=== PATIENT | female | born 1975 | race Hispanic/Latino ===

== ENCOUNTER 2020-02-11 17:55 | Emergency (ER) | payer OTHER ==
[2020-02-11] MEDS ORDERED: MORPHINE 4 MG/ML SYR ONE (19:41)
[2020-02-11] MEDS ORDERED: ONDANSETRON 4 MG/2 ML VIAL ONE (19:41)
[2020-02-11] MEDS ORDERED: NA CHLORIDE 0.9% 1,000 ML ONE (19:41)
[2020-02-11 19:50] LABS: Urine Blood 2+ (NEG); Urine Glucose 1+ (NEG); Urine Protein NEGATIVE (NEG); Urine pH 5.5 (5.0-7.0)
[2020-02-11 19:54] LABS: Protime INR 0.97
[2020-02-11 19:55] LABS: Absolute Lymphocytes (CBC) 2.7 K/uL (0.7-4.9); Basophils % 0.6 % (0-1.3); Hematocrit 28.4 % (36.0-45.0); Lymphocytes % 21.2 % (15.3-44.8); MPV 8.4 fL (7.6-11.3); RBC Red Blood Cell Count 4.26 M/uL (3.86-4.86)
[2020-02-11 20:01] LABS: Barbiturates NEGATIVE (NEGATIVE); Benzodiazepines NEGATIVE (NEGATIVE); Cocaine NEGATIVE (NEGATIVE); METHAMPHETAM NEGATIVE (NEGATIVE); Methadone NEGATIVE (NEGATIVE); Opiates NEGATIVE (NEGATIVE); Phencyclidine NEGATIVE (NEGATIVE); THC Cannibis NEGATIVE (NEGATIVE)
[2020-02-11 20:08] LABS: ALT/SGPT 26 U/L (12-78); AST/SGOT 14 U/L (15-37); Albumin 3.4 g/dL (3.4-5.0); Alkaline Phosphatase 92 U/L (45-117); BUN Blood Urea Nitrogen 14 mg/dL (7-18); Bicarbonate 23 mmol/L (21-32); Bilirubin Direct < 0.1 mg/dL (0-0.2); Bilirubin Total 0.2 mg/dL (0.2-1.0); Glucose Level 150 mg/dL (74-106); Magnesium 1.9 mg/dL (1.8-2.4); NT PRO-BNP 15 pg/mL (<125); Potassium 4.3 mmol/L (3.5-5.1); Protein, Total 8.9 g/dL (6.4-8.2); Sodium Level 136 mmol/L (136-145); Troponin (Emerg Dept Use Only) < 0.02 ng/mL (0.0-0.045)
[2020-02-11 20:13] LABS: Anisocytosis 3+; Blood Morphology Comment NOTED (NOT SEEN); Hypochromasia 1+; Ovalocytes 1+; Platelet Estimate ADEQ; White Blood Cell Scan OK
--- NOTE | 2020-02-11 20:14 | RAD REPORT ---
EXAM DESCRIPTION: RAD - Chest Single View - 02/11/2020 7:48 pm CLINICAL HISTORY: neck and left arm pain COMPARISON: Portable January 2017 TECHNIQUE: AP portable chest image was obtained 02/11/2020 7:48 pm . FINDINGS: Lungs are clear. Heart and vasculature are normal. No measurable pleural effusion and no p neumothorax. No acute bony abnormality seen. No acute aortic findings suspected. IMPRESSION: No acute cardiopulmonary process. No significant interval change.
--- NOTE | 2020-02-11 20:15 | RAD REPORT ---
EXAM DESCRIPTION: US - Extremity Venous Uni Ltd - 02/11/2020 8:05 pm CLINICAL HISTORY: Pain;Swelling COMPARISON: None. TECHNIQUE: Real-time sonographic evaluation of the left lower extremity deep venous system was perfo rmed. FINDINGS: Normal compressibility, flow augmentation, phasic flow and spontaneous flow are identified in the left lower extremity common femoral, superficial femoral, and popliteal veins. No intralumina l filling defects seen. IMPRESSION: No DVT in the left lower extremity.
[2020-02-11] MEDS ORDERED: MEPERIDINE HCL 50 MG/ML ONE (20:49)
[2020-02-11 20:59] LABS: Urine Bacteria 20-50 /HPF (<20); Urine Culture Reflex Order REFLEXED; Urine Mucus 2+ /HPF (NONE SEEN)
--- NOTE | 2020-02-11 22:59 | EDPHYS ---
Physician Documentation [facility] Name: Bindu Sharif Age: 44 yrs Sex: Female : 1975 Arrival Date: 02/11/2020 Time: 17:58 Bed 15 Private MD: Cheng [facility] ED Physician Suhas Duke HPI: 02/10 19:05 This 44 yrs old Female presents to ER via Wheelchair with complaints of Neck pkl Pain, <24hrs Old, Shoulder Pain, Arm Pain. 19:31 The patient or guardian complains of pain, that is acute. The symptoms are located at pkl the left side neck. Onset: The symptoms/episode began/occurred 2 week(s) ago. Associated signs and symptoms: Pertinent positives: left arm pain and numbness. Patient also complained of abdominal pain and pain and swelling left lower extremity. Historical: - Allergies: 18:20 iron transfusion; aa5 - PMHx: 18:20 Diabetes - IDDM; Anemia; Uterine fibroids; "Residue of blood clot in my stomach"; aa5 - PSHx: 18:20 Appendectomy; ; "Blood clot removed from stomach"; aa5 - Immunization history:: Adult Immunizations unknown. - Social history:: Smoking status: Patient reports the use of cigarette tobacco products, smokes one-half pack cigarettes per day. ROS: 19:31 Eyes: Negative for injury, pain, redness, and discharge, ENT: Negative for injury, pkl pain, and discharge. 19:31 Neck: Positive for pain with movement, of the left side neck. 19:31 Cardiovascular: Negative for chest pain. 19:31 Respiratory: Negative for cough, shortness of breath. 19:31 Abdomen/GI: Positive for abdominal pain, of the left upper quadrant and left lower quadrant, Negative for nausea, vomiting, and diarrhea. 19:31 Back: Negative for acute changes. 19:31 : Negative for urinary symptoms. 19:31 MS/extremity: Positive for pain, swelling, of the left lower extremity. 19:31 Skin: Negative for rash. 19:31 Neuro: Positive for numbness, of the left arm. Exam: 19:31 Head/Face: Normocephalic, atraumatic. Eyes: Pupils equal round and reactive to light, pkl extra-ocular motions intact. Lids and lashes normal. Conjunctiva and sclera are non-icteric and not injected. Cornea within normal limits. Periorbital areas with no swelling, redness, or edema. ENT: Nares patent. No nasal discharge, no septal abnormalities noted. Tympanic membranes are normal and external auditory canals are clear. Oropharynx with no redness, swelling, or masses, exudates, or evidence of obstruction, uvula midline. Mucous membranes moist. 19:31 Neck: ROM/movement: pain, that is moderate, with any movement. 19:31 Chest/axilla: Exam negative for acute changes. 19:31 Cardiovascular: Rate: tachycardic, actual rate is 104 bpm, Rhythm: regular. 19:31 Respiratory: the patient does not display signs of respiratory distress, Respirations: normal, Breath sounds: are clear throughout. 19:31 Abdomen/GI: Bowel sounds: normal, Palpation: soft, nontender, in all quadrants. 19:31 Back: Exam negative for acute changes. 19:31 : Exam negative for acute changes. 19:31 Musculoskeletal/extremity: Extremities: grossly normal except: noted in the left lower extremity: pain, swelling, around stump BKA. 19:31 Skin: Exam negative for rash. 19:31 Neuro: Orientation: is normal, Mentation: is normal, Memory: is normal, Cranial nerves: grossly normal, Motor: is normal, Sensation: numbness, that is mild, of the left arm. Vital Signs: 18:17 BP 139 / 88; Pulse 104; Resp 18 S; Temp 98.7(O); Pulse Ox 100% on R/A; Weight 74.39 kg aa5 (R); Height 5 ft. 4 in. (162.56 cm) (R); Pain 8/10; 20:58 BP 122 / 76; Pulse 103; Resp 18; Pulse Ox 100% on R/A; ea 22:32 BP 155 / 82; Pulse 89; Resp 19; Pulse Ox 100% ; ea 23:00 BP 128 / 68; Pulse 60; Resp 18; Temp 98.6; Pulse Ox 99% ; ea 18:17 Body Mass Index 28.15 (74.39 kg, 162.56 cm) aa5 MDM: 19:05 Patient medically screened. pkl 22:54 Data reviewed: vital signs, nurses notes, radiologic studies, CT scan, plain films, pkl ultrasound. ED course: Discussed lab. and imaging studies with patient. Advised to follow up with PCP in 2 to 3 days. Patient understood instructions. 02/10 19:24 Order name: Basic Metabolic Panel; Complete Time: 20:21 pkl 02/10 19:24 Order name: CBC with Diff; Complete Time: 20:21 pkl 02/10 19:24 Order name: LFT's; Complete Time: 20:21 pkl 02/10 19:24 Order name: Magnesium; Complete Time: 20:21 pkl 02/10 19:24 Order name: NT PRO-BNP; Complete Time: 20:21 pkl 02/10 19:24 Order name: PT-INR; Complete Time: 20: pkl 02/10 19:24 Order name: Troponin (emerg Dept Use Only); Complete Time: 20:21 pk 02/10 19:24 Order name: D-Dimer; Complete Time: 20:21 pkl 02/10 19:24 Order name: UDS; Complete Time: 20:21 pk 02/10 19:25 Order name: Lipase pk 02/10 19:26 Order name: Lipase; Complete Time: 20:21 EDMS 02/10 19:48 Order name: Urine --Ancillary (enter results); Complete Time: 20:21 tt3 02/10 19:48 Order name: Urine Dipstick--Ancillary (enter results); Complete Time: 20:21 tt3 02/10 19:57 Order name: CBC Smear Scan; Complete Time: 20:21 EDMS 02/10 19:24 Order name: XRAY Chest (1 view); Complete Time: 20:21 pk 02/10 19:24 Order name: EKG; Complete Time: 19:24 pk 02/10 19:24 Order name: Cardiac monitoring; Complete Time: 20:02 pk 02/10 19:24 Order name: EKG - Nurse/Tech; Complete Time: 20:03 pk 02/10 19:24 Order name: IV Saline Lock; Complete Time: 20:03 pk 02/10 19:24 Order name: Labs collected and sent; Complete Time: 20:03 pkl 02/10 19:27 Order name: US Extremity Venous Unilateral Ltd; Complete Time: 20:21 pk 02/10 20:25 Order name: Urine Microscopic Only; Complete Time: 22:26 ea 02/10 20:28 Order name: CT C Spine pkl 02/10 20:28 Order name: CT Abd/Pelvis - PO and IV Contrast pkl 02/10 21:00 Order name: Urine Culture EDKY 02/10 19:24 Order name: O2 Per Protocol; Complete Time: 20:03 pkl 02/10 19:24 Order name: O2 Sat Monitoring; Complete Time: 20:03 pkl Administered Medications: 19:30 Drug: NS 0.9% 1000 ml Route: IV; Rate: 125 ml/hr; Site: right antecubital; ea 23:13 Follow up: Response: No adverse reaction; IV Status: Completed infusion; IV Intake: ea 200ml 19:30 Drug: morphine 4 mg {Note: rass 0.} Route: IVP; Site: right antecubital; ea 20:35 Follow up: Response: No adverse reaction; Pain is unchanged, physician notified ea 19:30 Drug: Zofran (Ondansetron) 4 mg Route: IVP; Site: right antecubital; ea 20:54 Follow up: Response: No adverse reaction ea 20:42 Drug: Demerol 50 mg {Note: RASS 1.} Route: IVP; Site: right antecubital; ea 23:09 Follow up: Response: Pain is decreased; RASS: Alert and Calm (0) ea 23:04 Drug: Ciprofloxacin 500 mg Route: PO; ea 23:09 Follow up: Response: Medication administered at discharge. ea Disposition: 02/11/20 22:59 Discharged to Home. Impression: Acute neck pain. Abdominal pain. Urinary tract infection. - Condition is Stable. - Prescriptions for Tylenol- Codeine #3 300-30 mg Oral Tablet - take 1 tablet by ORAL route every 8 hours As needed; 20 tablet. Cipro 500 mg Oral Tablet - take 1 tablet by ORAL route every 12 hours for 7 days; 14 tablet. Cyclobenzaprine 10 mg Oral Tablet - take 1 tablet by ORAL route 2 times per day As needed; 20 tablet. - Medication Reconciliation Form, Thank You Letter, Antibiotic Education, Prescription Opioid Use form. - Follow up: Yaakov Anand DO; When: 2 - 3 days; Reason: Re-evaluation by your physician. - Problem is new. - Symptoms have improved. Signatures: Dispatcher [employer] EDMS Suhas Duke MD MD pkl Mary Jane Baca, RN RN aa5 Enedina Damico, RN RN ea Corrections: (The following items were deleted from the chart) 23:12 22:59 02/11/2020 22:59 Discharged to Home. Impression: Acute neck pain. Abdominal pain. ea Urinary tract infection. Condition is Stable. Forms are Medication Reconciliation Form, Thank You Letter, Antibiotic Education, Prescription Opioid Use. Follow up: Yaakov Anand; When: 2 - 3 days; Reason: Re-evaluation by your physician. Problem is new. Symptoms have improved. pkl
--- NOTE | 2020-02-11 22:59 | ER ---
Nurse's Notes [facility] Name: Bindu Sharif Age: 44 yrs Sex: Female : 1975 Arrival Date: 02/11/2020 Time: 17:58 Bed 15 Private MD: Yaakov Anand Diagnosis: Acute neck pain. Abdominal pain. Urinary tract infection Presentation: 02/10 18:17 Chief complaint: Patient states: left side of neck pain and left arm pain/numbness that aa5 began 2 weeks ago. Pt also reports pain to left stump and swelling that began today. Pt states "my stomach is also hurting worse than usual". Coronavirus screen: Client denies travel out of the [place] in the last 14 days. At this time, the client does not indicate any symptoms associated with coronavirus-19. Ebola Screen: Patient negative for fever greater than or equal to 101.5 degrees Fahrenheit, and additional compatible Ebola Virus Disease symptoms. Initial Sepsis Screen: Does the patient meet any 2 criteria? HR > 90 bpm. Does the patient have a suspected source of infection? No. Patient's initial sepsis screen is negative. Risk Assessment: Do you want to hurt yourself or someone else? Patient reports no desire to harm self or others. Onset of symptoms was January 2020. 18:17 Method Of Arrival: Wheelchair aa5 18:17 Acuity: BEN 3 aa5 Historical: - Allergies: 18:20 iron transfusion; aa5 - PMHx: 18:20 Diabetes - IDDM; Anemia; Uterine fibroids; "Residue of blood clot in my stomach"; aa5 - PSHx: 18:20 Appendectomy; ; "Blood clot removed from stomach"; aa5 - Immunization history:: Adult Immunizations unknown. - Social history:: Smoking status: Patient reports the use of cigarette tobacco products, smokes one-half pack cigarettes per day. Screenin:16 Abuse screen: Denies threats or abuse. Nutritional screening: No deficits noted. ea Tuberculosis screening: No symptoms or risk factors identified. Fall Risk None identified. Assessment: 19:15 General: Appears comfortable, Behavior is calm, cooperative, appropriate for age. Pain: ea Complains of pain in back. Neuro: Level of Consciousness is awake, alert, obeys commands, Oriented to person, place, time, situation. Cardiovascular: Patient's skin is warm and dry. Respiratory: Airway is patent Respiratory effort is even, unlabored, Respiratory pattern is regular, symmetrical. Derm: Skin is pink, warm \\T\\ dry. 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 20:56 Reassessment: Patient and/or family updated on plan of care and expected duration. Pain ea level reassessed. Patient is alert, oriented x 3, equal unlabored respirations, skin warm/dry/pink. Pt finished oral contrast CT notified. 21:56 Reassessment: Pt taken to CT. ea 22:03 Reassessment: Patient and/or family updated on plan of care and expected duration. Pain ea level reassessed. Patient is alert, oriented x 3, equal unlabored respirations, skin warm/dry/pink. Returned from CT. 23:10 Reassessment: Patient and/or family updated on plan of care and expected duration. Pain ea level reassessed. Patient is alert, oriented x 3, equal unlabored respirations, skin warm/dry/pink. Discharge instruction given to patient verbalized the understanding of instruction .Pt left ED per personal wheelchair, pt tolerating well. Vital Signs: 18:17 BP 139 / 88; Pulse 104; Resp 18 S; Temp 98.7(O); Pulse Ox 100% on R/A; Weight 74.39 kg aa5 (R); Height 5 ft. 4 in. (162.56 cm) (R); Pain 8/10; 20:58 BP 122 / 76; Pulse 103; Resp 18; Pulse Ox 100% on R/A; ea 22:32 BP 155 / 82; Pulse 89; Resp 19; Pulse Ox 100% ; ea 23:00 BP 128 / 68; Pulse 60; Resp 18; Temp 98.6; Pulse Ox 99% ; ea 18:17 Body Mass Index 28.15 (74.39 kg, 162.56 cm) aa5 ED Course: 17:58 Patient arrived in ED. ag5 17:58 Yaakov Anand DO is Private Physician. ag5 18:17 Arm band placed on. aa5 18:19 Triage completed. aa5 19:05 Suhas Duke MD is Attending Physician. pkl 19:15 Enedina Damico RN is Primary Nurse. ea 19:16 Patient has correct armband on for positive identification. Bed in low position. Call ea light in reach. Side rails up X2. 19:25 Inserted saline lock: 20 gauge in right antecubital area, using aseptic technique. ea Blood collected. 19:48 XRAY Chest (1 view) In Process Unspecified. EDMS 19:58 Notified ED physician of a critical lab result(s). D Dimer 634. sg 20:06 US Extremity Venous Unilateral Ltd In Process Unspecified. EDMS 22:07 CT C Spine In Process Unspecified. EDMS 22:09 CT Abd/Pelvis - PO and IV Contrast In Process Unspecified. EDMS 22:57 Yaakov Anand DO is Referral Physician. pkl 23:10 No provider procedures requiring assistance completed. IV discontinued, intact, ea bleeding controlled, No redness/swelling at site. Pressure dressing applied. Administered Medications: 19:30 Drug: NS 0.9% 1000 ml Route: IV; Rate: 125 ml/hr; Site: right antecubital; ea 23:13 Follow up: Response: No adverse reaction; IV Status: Completed infusion; IV Intake: ea 200ml 19:30 Drug: morphine 4 mg {Note: rass 0.} Route: IVP; Site: right antecubital; ea 20:35 Follow up: Response: No adverse reaction; Pain is unchanged, physician notified ea 19:30 Drug: Zofran (Ondansetron) 4 mg Route: IVP; Site: right antecubital; ea 20:54 Follow up: Response: No adverse reaction ea 20:42 Drug: Demerol 50 mg {Note: RASS 1.} Route: IVP; Site: right antecubital; ea 23:09 Follow up: Response: Pain is decreased; RASS: Alert and Calm (0) ea 23:04 Drug: Ciprofloxacin 500 mg Route: PO; ea 23:09 Follow up: Response: Medication administered at discharge. ea Intake: 23:13 IV: 200ml; Total: 200ml. ea Outcome: 22:59 Discharge ordered by . pkl 23:11 Discharged to home via wheelchair, with family. ea 23:11 Condition: stable 23:11 Discharge instructions given to patient, Instructed on discharge instructions, follow up and referral plans. medication usage, Demonstrated understanding of instructions, follow-up care, medications, Prescriptions given X 2. 23:12 Patient left the ED. ea Addendum: 02/14/2020 09:16 Addendum: Culture Results: Positive urine culture. No further action required. Bacteria h b sensitive to prescribed antibiotic. Signatures: Dispatcher [employer] EDDennis Conklin, RN Suhas Lynn MD MD pkl Calderon, Audri RN RN aa5 Arielle Gonzalez RN JAYCOB Enedina Damico RN Gianluca Ferreira ea ag5 Corrections: (The following items were deleted from the chart) 02/10 23:09 23:08 Response: RASS: Alert and Calm (0) mike mckeon
[2020-02-11] MEDS ORDERED: CIPROFLOXACIN HCL 500 MG TAB ONE (23:09)
--- NOTE | 2020-02-12 07:01 | EKG ---
Test Date: 2020-02-11 Test Time: 20:01:48 Slotter Operator Helper: KENNETH MEASUREMENT RESULTS: Intervals: Rate: 93 LA: 154 QRSD: 84 QT: 364 QTc: 452 Romney: P: 40 LA: 154 QRS: 38 T: 29 INTERPRETIVE STATEMENTS: Normal sinus rhythm Possible Anterior infarct, age undetermined Abnormal ECG Compared to ECG 01/24/2017 17:09:59 No significant changes Electronically Signed On 02-12-20 07:00:07 CDT by Rosendo Landeros
--- NOTE | 2020-02-12 19:22 | RAD REPORT ---
EXAM DESCRIPTION: CT - Abdomen Pelvis W Contrast - 02/12/2020 6:45 am CLINICAL HISTORY: ABD PAIN COMPARISON: None Available. TECHNIQUE: CT of the abdomen and pelvis performed following IV administration of iodinated contras t. FINDINGS: Lung Bases: Minimal dependent atelectasis in the right lung base. Bones: No destructive bone lesions identified. Abdomen: Liver: The liver has normal size and density. No intrahepatic biliary dilatation. Gallbladder: Possible high density material in the dependent portion of the gallbladder lumen. Spleen, Pancreas, and Adrenal Glands: The spleen, pancreas, and adrenal glands are unremarkable. Kidneys: No hydronephrosis or obstructing calculus. Mild nonspecific perinephric fat stranding. Vasculature: Aortoiliac atherosclerosis. Luminal narrowing is greater than 50% of the infrarenal abdo chelle aorta were not the basis of noncalcified atherosclerotic plaque. The portal vein is patent. T he proximal visceral and renal arteries are patent. Stomach: The stomach and duodenum have normal course. Other: No free intraperitoneal air. No free fluid or lymphadenopathy. Pelvis: Bladder: Urinary bladder is unremarkable. Bowel: No dilated loops of large or small bowel. Appendix: Not identified. Pelvis: 6.0 cm heterogeneous structure arising from the uterus likely representing a subserosal fibro id. Postoperative change in the right inguinal regions. IMPRESSION: 1. No acute inflammatory or obstructive process identified. 2. Approximately 50% stenosis of the infrarenal abdominal aorta on the basis of noncalcified atherosc lerotic plaque. If the patient has symptoms of aortoiliac stenosis such as buttock claudication, dedi cated CTA and vascular consultation may be beneficial. 3. Fibroid uterus. 4. Possible high density material in the gallbladder lumen. Right upper quadrant ultrasound could pro vide additional characterization if there is concern for cholelithiasis. No CT evidence of acute chol ecystitis. This exam was performed according to our departmental dose-optimization program, which includes autom ated exposure control, adjustment of the mA and/or kV according to patient size and/or use of iterati ve reconstruction technique. Electronically signed by: Wil Mora 02/11/2020 10:29 PM CDT Due to temporary technical issues with the PACS/Fluency reporting system, reports are being signed by the in house radiologist without review as a courtesy to ensure prompt reporting. The interpreting r adiologist is fully responsible for the content of the report.
--- NOTE | 2020-02-12 19:24 | RAD REPORT ---
EXAM DESCRIPTION: CT - C Spine Wo Con - 02/12/2020 6:45 am CLINICAL HISTORY: PAIN COMPARISON: None available TECHNIQUE: Axial CT of the cervical spine obtained without contrast. FINDINGS: Straightening of the cervical lordosis may be secondary to patient positioning. The atla ntoaxial, atlantodental, and occipitoatlantal intervals are preserved. No fracture identified. Vert ebral body height preserved. Prevertebral soft tissues are unremarkable. Intervertebral disc height preserved. Minimal endplate spondylosis at C5/6 and C6/7. Visualized skull base is intact. No fracture of the visualized facial bones. Visualized mastoid air cells and paranasal sinuses are well aerated. Scattered periapical lucencies of both the maxillary a nd mandibular dentition. Visualized thyroid is unremarkable. No cervical lymphadenopathy. No pneumothorax in the visualized lung apices. IMPRESSION: 1. No acute fracture or subluxation of the cervical spine. This exam was performed according to our departmental dose-optimization program, which includes autom ated exposure control, adjustment of the mA and/or kV according to patient size and/or use of iterati ve reconstruction technique. Electronically signed by: Wil Mora 02/11/2020 10:22 PM CDT Due to temporary technical issues with the PACS/Fluency reporting system, reports are being signed by the in house radiologist without review as a courtesy to ensure prompt reporting. The interpreting r adiologist is fully responsible for the content of the report.
[2020-02-14 15:46] VITALS: BP 128/68; TEMP 98.6; O2SAT 99
== END 2020-02-11 23:12 | disposition home or self-care (01) ==
LOC: ER 17:55
DX: N39.0 Urinary tract infection, site not specified (principal); R10.9 Unspecified abdominal pain; F17.210 Nicotine dependence, cigarettes, uncomplicated; Z91.09 Other allergy status, other than to drugs and biological substances
CPT/HCPCS: 96361; 93005; 87088; 85025; 87086; 80048; 36415; 83735; 81025; 85610; 85379; 80076; 80307 ×8; 87077; 87186; 84484; 83690; 83880; 72125; 74177; 71045; 93971; 96375; 96374; 99284; Q9967; J2175; J7030; J2405; 81003; 81015